=== PATIENT | female | born 2005 | race Caucasian/White ===

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

== ENCOUNTER 2024-11-14 13:24 | Emergency (ER) | payer BC, OTHER ==
[2024-11-14 13:32] VITALS: RESP 18; TEMP 98.4
--- NOTE | 2024-11-14 13:43 | ED ---
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 Patient states that he had a reconstructive breast surgery completed on September 02, 2024. She states that this morning she noticed that there is an area of abscess mild redness over the breast and is concerned for an infection. She denies fevers, chills, nausea, vomiting. Endorses mild breast pain over the area of abscess. States that there was some mild drainage from the area after she applied slight pressure. Patient follows with surgeon at [facility] with recent appointment in middle of September. - Related Data Home Medications Medication Instructions Recorded Confirmed Norelgestromin/Ethin.estradiol 1 patch TRANSDERM DIRECTED 11/14/24 11/14/24 [Xulane 150-35 Mcg/Day Patch] Previous Rx's Medication Instructions Recorded Ibuprofen [Motrin] 600 mg PO Q8HR PRN #20 tab 02/14/23 Cephalexin [Keflex] 500 mg PO Q6HR #40 cap 11/14/24 Allergies Allergy/AdvReac Type Severity Reaction Status Date / Time No Known Allergies Allergy Verified 11/14/24 13:49 Review of Systems ROS Statement: Those systems with pertinent positive or pertinent negative responses have been documented in the HPI. ROS Other: All systems not noted in ROS Statement are negative. Past Medical History Past Medical History: No Reported History Additional Past Medical History / Comment(s): linear morphea History of Any Multi-Drug Resistant Organisms: None Reported Past Surgical History: No Surgical Hx Reported Additional Past Surgical History / Comment(s): plate inserted in chest Past Psychological History: No Psychological Hx Reported Smoking Status: Current some day smoker, Vaper Past Alcohol Use History: Occasional Past Drug Use History: Marijuana General Exam Limitations: no limitations General appearance: alert, in no apparent distress Neck exam: Present: normal inspection. Absent: tenderness, meningismus, lymphadenopathy Respiratory exam: Present: normal lung sounds bilaterally. Absent: respiratory distress, wheezes, rales, rhonchi, stridor Cardiovascular Exam: Present: regular rate, normal rhythm, normal heart sounds. Absent: systolic murmur, diastolic murmur, rubs, gallop, clicks GI/Abdominal exam: Present: soft, normal bowel sounds. Absent: distended, tenderness, guarding, rebound, rigid Extremities exam: Present: normal inspection, full ROM, normal capillary refill. Absent: tenderness, pedal edema, joint swelling, calf tenderness Back exam: Present: normal inspection Skin exam: Present: warm, dry, intact, normal color, other (crusting over right areola aprox. 3 mm in diameter). Absent: rash Course Vital Signs 11/14/24 13:28 Temperature 98.4 F Pulse Rate 85 Respiratory 18 Rate Blood Pressure 117/79 O2 Sat by Pulse 100 Oximetry Medical Decision Making - Medical Decision Making Was pt. sent in by a medical professional or institution (SRIDHAR Muñiz, CLIENT FINANCE ANALYST, urgent care, hospital, or residential...) When possible be specific @ -No Did you speak to anyone other than the patient for history (EMS, parent, family, police, friend...)? What history was obtained from this source @ -No Did you review nursing and triage notes (agree or disagree)? Why? @ -I reviewed and agree with nursing and triage notes Were old charts reviewed (outside hosp., previous admission, EMS record, old EKG, old radiological studies, urgent care reports/EKG's, residential records)? Report findings @ -No old charts were reviewed Differential Diagnosis (chest pain, altered mental status, abdominal pain women, abdominal pain men, vaginal bleeding, weakness, fever, dyspnea, syncope, headache, dizziness, GI bleed, back pain, seizure, CVA, palpatations, mental health, musculoskeletal)? @ -Breast abscess, cellulitis, postsurgical complication, this list is not all inclusive EKG interpreted by me (3pts min.). @ -None X-rays interpreted by me (1pt min.). @ -None done CT interpreted by me (1pt min.). @ -None done U/S interpreted by me (1pt. min.). @ -Ultrasound completed of the right breast no suspicious abnormality noted of the area of concern. What testing was considered but not performed or refused? (CT, X-rays, U/S, labs)? Why? @ -None What meds were considered but not given or refused? Why? @ -None Did you discuss the management of the patient with other professionals (professionals i.e. Dr., PA, CLIENT FINANCE ANALYST, lab, RT, psych nurse, social work msw, district plant superintendent, teacher, medical laboratory technical officer, pillowcase turner)? Give summary @ -No Was smoking cessation discussed for >3mins.? @ -No Was critical care preformed (if so, how long)? @ -No Were there social determinants of health that impacted care today? How? (Homelessness, low income, unemployed, alcoholism, drug addiction, transportation, low edu. Level, literacy, decrease access to med. care, intermediate, rehab)? @ -No Was there de-escalation of care discussed even if they declined (Discuss DNR or withdrawal of care, Hospice)? DNR status @ -No What co-morbidities impacted this encounter? (DM, HTN, Smoking, COPD, CAD, Cancer, CVA, ARF, Chemo, Hep., AIDS, mental health diagnosis, sleep apnea, morbid obesity)? @ -None Was patient admitted / discharged? Hospital course, mention meds given and route, prescriptions, significant lab abnormalities, going to OR and other pertinent info. @ -Discharge. 19-year-old female resenting with pain to the right breast. On evaluation patient noted to have a 3 mm area of mild erythema and crusting at the 6 o'clock position of the right areola. She was offered pain medication was declined. Ultrasound no abnormality noted. With concern for mild erythema and crusting consistent with breast abscess. I sent a prescription for Keflex. She is instructed to continue warm compresses at home and follow-up with breast surgeon. Case discussed with Dr. Hernandez Undiagnosed new problem with uncertain prognosis? @ -No Drug Therapy requiring intensive monitoring for toxicity (Heparin, Nitro, Insulin, Cardizem)? @ -No Were any procedures done? @ -No Diagnosis/symptom? @ -breast abscess Acute, or Chronic, or Acute on Chronic? @ -acute Uncomplicated (without systemic symptoms) or Complicated (systemic symptoms)? @ -uncomplicated Side effects of treatment? @ -No Exacerbation, Progression, or Severe Exacerbation? @ -No Poses a threat to life or bodily function? How? (Chest pain, USA, [place], pneumonia, PE, COPD, DKA, ARF, appy, cholecystitis, CVA, Diverticulitis, Homicidal, Suicidal, threat to staff... and all critical care pts) @ -No Disposition Clinical Impression: Breast abscess Disposition: HOME SELF-CARE Condition: Good Instructions (If sedation given, give patient instructions): Abscess (ED) Additional Instructions: Please return to the Emergency Department if symptoms worsen or any other concerns. Complete full course of antibiotics as prescribed. Continue warm compresses. Follow-up with your breast surgeon earliest convenience for follow- up. Prescriptions: Cephalexin [Keflex] 500 mg PO Q6HR #40 cap Is patient prescribed a controlled substance at d/c from ED?: No Referrals: None,Stated [Primary Care Provider] - 1-2 days Time of Disposition: 14:33
[2024-11-14 14:56] VITALS: BP 95/69; PULSE 87
== END 2024-11-14 14:56 | disposition home or self-care (01) ==
LOC: EC 13:24
DX: N61.1 Abscess of the breast and nipple (principal); G89.18 Other acute postprocedural pain; F17.290 Nicotine dependence, other tobacco product, uncomplicated
CPT/HCPCS: 99283